=== PATIENT | male | born 1945 | race African-American/Black ===

== ENCOUNTER 2016-08-25 09:20 | Outpatient (CLI) | payer MEDICARE, OTHER | END 2016-08-25 09:21 | DX: I10 Essential (primary) hypertension (principal); Z12.5 Encounter for screening for malignant neoplasm of prostate; E78.5 Hyperlipidemia, unspecified | CPT/HCPCS: 36415; 80053; 80061; 84443; 85025; G0103 ==

== ENCOUNTER 2016-08-26 07:01 | Outpatient (CLI) | payer MEDICARE, OTHER | END 2016-08-26 07:02 | disposition home or self-care (01) | DX: M62.81 Muscle weakness (generalized) (principal); G81.11 Spastic hemiplegia affecting right dominant side ==

== ENCOUNTER 2016-08-30 11:13 | Outpatient (CLI) | payer MEDICARE, OTHER | END 2016-08-30 11:14 | disposition home or self-care (01) | DX: M62.81 Muscle weakness (generalized) (principal) ==

== ENCOUNTER 2016-09-08 07:34 | Outpatient (CLI) | payer MEDICARE, OTHER ==
[2016-09-08] MEDS ORDERED: GADOBUTROL 10 MMOL/10 ML VIAL IVP ONE (08:47)
--- NOTE | 2016-09-08 10:13 | MRI Report ---
EXAM: MRI BRAIN WITHOUT AND WITH CONTRAST EXAM DATE: 09/08/2016 09:05 AM. CLINICAL HISTORY: Right side weakness. COMPARISON: None. TECHNIQUE: Multiplanar, multisequence T1-weighted and fluid-sensitive MR sequences of the brain were performed. Sequences optimized for routine evaluation. Other: None. Without and with IV Contrast: 8 m L Gadavist. FINDINGS: Brain Volume: Mild age-related cerebral volume loss. Parenchyma/Dura: Multiple scattered nodular foci of diffusion abnormality in the region of the left f rontal lobe. The larger of these show restricted diffusion. The largest lesion in the left frontal lo be white matter is about 6 mm in diameter. Several additional foci of diffusion abnormality are small er. These findings are consistent with acute to subacute ischemic infarcts with accompanying T2 hyper intensity. No acute cerebral hemorrhage. Posterior left frontal lobe gyral and nodular peripheral enhancement. Enhancement is present in the r egions of diffusion abnormality. Subacute infarct of cortex creating enhancement is suspected. Enhanc ement from infection or tumor is less likely. Moderately prominent chronic-appearing nonenhancing cerebral white matter T2-hyperintense signal nayak ges, nonspecific, likely contributed to by aging and chronic small-vessel ischemic disease, though th e usual gamut of white matter conditions may be considered. Ventricles/Cisterns: No hydrocephalus. Sinuses: No acute sinus or mastoid disease. Bones: No focal pathologic-appearing marrow signal changes in the skull or clivus. Other: The major arterial skull base flow voids are present. Nonenhancing small ovoid focus of fluid signal at the most posterior aspect of the pituitary fossa. T his measures about 4 x 6 mm. IMPRESSION: 1. Multiple small scattered predominantly left MCA territory probably subacute ischemic infarcts. 2. No acute hemorrhage. 3. Mild atrophy and moderate white matter disease, white matter changes may be contributed to by agin g and chronic microangiopathy. 4. Posterior pituitary fossa circumscribed fluid signal focus, more likely cyst than tumor. Findings of infarct called by telephone to Doctor Flores at 9:50 AM 09/08/2016. [facility] Referring Provider Line: [phone] SITE ID: [id number]
--- NOTE | 2016-09-08 16:57 | Ultrasound Report ---
CAROTID DUPLEX: 09/08/2016 CLINICAL INDICATION: Left-sided infarcts. TECHNIQUE: Real-time sonographic vascular imaging was performed by the [employer] consultant through the carotid arteries utilizing both color-flow and Doppler spectral analysis. Multiple sales solutions representative static images were saved for review. Vessel PSV cm/sec 2D Plaque Estimate % ICA/CCA PSV EDV cm/sec % Stenosis RCCA Prox 76 -- RCCA Dist 106 26 RECA 83 -- RT BULB 101 -- 0.95 32 SHANTANU Prox 112 -- 1.06 40 SHANTANU Mid 99 -- 0.93 37 SHANTANU Dist 50 -- 0.47 20 RVA 79 RVA flow direction: Antegrade. Vessel PSV cm/sec 2D Plaque Estimate % ICA/CCA PSV EDV cm/sec % Stenosis LCCA Prox 93 -- LCCA Dist 81 19 LECA 76 -- LFT BULB 365 -- 4.5 115 LICA Prox 123 -- 1.52 34 LICA Mid 54 -- 0.67 24 LICA Dist 65 -- 0.80 24 LVA 49 LVA flow direction: Antegrade. Velocity criteria are extrapolated from diameter data as defined by the Society of Radiologists in Ultrasound Consensus Conference Radiology 2003; 229; 340-346. Degree of Stenosis % ICA PSV cm/sec Plaque Estimate % ICA/CCA RSV Ratio ICA EDV cm/sec Normal < 125 None < 2.0 < 40 <50 < 125 < 50 < 2.0 < 40 50-69 125 - 130 >/= 50 2.0 - 4.0 40 - 100 >/= 70 but less than near occlusion > 230 >/= 50 > 4.0 > 100 Near occlusion High, low, or undetectable Visible lumen Variable Variable Total occlusion Undetectable No detectable lumen Not applicable Not applicable FINDINGS: RIGHT: There is mild plaquing in the right carotid bifurcation, without evidence of a focal hemodynamically significant carotid stenosis. LEFT: There is a large amount of plaque in the left carotid bifurcation, extending into the proximal left internal carotid artery, producing greater than 70% luminal diameter narrowing in the bulb by velocity criteria. The vertebral arteries demonstrate antegrade flow bilaterally. IMPRESSION: HEMODYNAMICALLY SIGNIFICANT CAROTID STENOSIS IN THE LEFT BULB, EXTENDING INTO THE LEFT INTERNAL CAROTID ARTERY. CRITICAL RESULT: RESULTS CALLED TO DR. ANGELES, COVERING FOR СЕРГЕЙ CHEATHAM, ON 09/[address] [facility]
== END 2016-09-08 07:35 | disposition home or self-care (01) ==
LOC: DI 07:34
PROVIDERS: ATTEND Physician Assistant Medical
DX: I65.22 Occlusion and stenosis of left carotid artery (principal); G31.9 Degenerative disease of nervous system, unspecified; R90.82 White matter disease, unspecified; G93.9 Disorder of brain, unspecified
CPT/HCPCS: 70553; 93880; A9585

== ENCOUNTER 2016-11-06 17:46 | Emergency (ER) | payer MEDICARE, OTHER ==
--- NOTE | 2016-11-06 20:04 | ED Physician Documentation ---
PD HPI DYSPNEA - Stated complaint Stated Complaint: SOA - Chief complaint Chief Complaint: Resp - History obtained from History obtained from: Patient - History of Present Illness Timing - onset: Other (70-year-old gentleman, 3 weeks status post carotid endarterectomy with iatrogenic vocal cord paralysis. Ever since the surgery when he exercises he is short of breath. There is no shortness of breath at rest or chest pain, no pedal edema, cough, or leg pain. No history of heart or lung disease, no history of DVT or PE. He was seen in the office and reportedly a chest x-ray was done and normal, a d-dimer was high and sent here for CT angiography to rule out PE.) Review of Systems Constitutional: denies: Fever, Chills Ears: denies: Loss of hearing, Ear pain Nose: denies: Rhinorrhea / runny nose, Congestion Cardiac: denies: Chest pain / pressure, Palpitations, Pedal edema, Calf pain Respiratory: reports: Dyspnea. denies: Cough GI: denies: Abdominal Pain PD PAST MEDICAL HISTORY - Past Medical History Past Medical History: Yes Neuro: CVA - Past Surgical History Past Surgical History: Yes - Present Medications Home Medications: Ambulatory Orders Medication Instructions Recorded Confirmed Aspirin [Aspirin EC] 81 mg PO DAILY 11/06/16 11/06/16 Clopidogrel [Plavix] 75 mg PO DAILY 11/06/16 11/06/16 Enoxaparin [Lovenox] 80 mg SUBQ Q12H #10 syringe 11/06/16 Losartan [Cozaar] 25 mg PO DAILY 11/06/16 11/06/16 Metoprolol Tartrate 25 mg PO DAILY 11/06/16 11/06/16 - Allergies Allergies/Adverse Reactions: Allergies Allergy/AdvReac Type Severity Reaction Status Date / Time No Known Drug Allergies Allergy Verified 11/06/16 17:53 - Social History Does the pt smoke?: No Smoking Status: Never smoker Does the pt drink ETOH?: No Does the pt have substance abuse?: No PD ED PE NORMAL - Vitals Vital signs reviewed: Yes - General General: Alert and oriented X 3, No acute distress - HEENT HEENT: PERRL, EOMI - Neck Neck: Other (Healing left-sided carotid endarterectomy scar and he does have stridor with deep breathing which he says he has had ever since the surgery.) - Cardiac Cardiac: RRR, No murmur - Respiratory Respiratory: No respiratory distress, Clear bilaterally - Abdomen Abdomen: Non tender - Extremities Extremities: No edema, No calf tenderness / cord - Neuro Neuro: Alert and oriented X 3, Normal speech - Psych Psych: Normal mood, Normal affect Results - Vitals Vitals: Vital Signs - 24 hr 11/06/16 11/06/16 11/06/16 17:51 19:53 22:32 Temperature 36.7 C 36.6 C Heart Rate 56 L 91 89 Respiratory 18 18 16 Rate Blood Pressure 158/83 H 158/82 H 149/75 H O2 Saturation 97 96 98 Oxygen O2 Source Room air - EKG (time done) 1934 Rate: Rate (enter#) (90) Rhythm: NSR [place]: Normal Intervals: Normal RI QRS: Normal Ischemia: Normal ST segments Computer interpretation: Agree with computer - Labs Labs: Laboratory Tests 11/06/16 11/06/16 11/06/16 20:00 20:50 20:50 WBC 6.8 RBC 5.19 Hgb 13.9 L Hct 41.9 L MCV 80.8 MCH 26.9 L MCHC 33.3 RDW 14.6 Plt Count 215 MPV 7.3 L Neut # 3.3 Lymph # 2.8 Hendry # 0.5 Eos # 0.1 Baso # 0.0 Absolute Nucleated RBC 0.00 Nucleated RBCs 0.1 Sodium 140 Potassium 3.1 L Chloride 102 Carbon Dioxide 28 Anion Gap 10.0 BUN 25 H Creatinine 1.4 H Estimated GFR (MDRD) 61 L Glucose 107 H Calcium 9.4 Troponin I < 0.04 - Rads (name of study) CT PA Radiology: EMP read contemporaneously (Nondiagnostic due to bad contrast timing) PD MEDICAL DECISION MAKING - ED course ED course: 70-year-old gentleman presents with postoperative dyspnea and high d-dimer as done in the outpatient setting. CT pulmonary angiogram was unfortunately nondiagnostic due to poor contrast bolus timing. I had a discussion with the patient and his and recommended he stay in observation and need to be hydrated for repeat repeat CT pulmonary angiogram in the morning or VQ scan. He refused this, he wants to go see his ear nose and throat physician with whom he has a follow-up appointment tomorrow. Other options considered and posited to the patient were staying a few hours for IV hydration and repeat CT in a few hours, he declined this as well. He felt comfortable giving himself Lovenox so he will give himself Lovenox until he can return here on Monday to have a CT repeated. Departure - Departure Disposition: Home, Self Care Clinical Impression: Dyspnea Qualifiers: Dyspnea type: dyspnea on exertion Qualified Code(s): R06.09 - Other forms of dyspnea Condition: Good Record reviewed to determine appropriate education?: Yes Prescriptions: Enoxaparin [Lovenox] 80 mg SUBQ Q12H #10 syringe Comments: Give yourself the Lovenox shot twice a day including tomorrow morning until you have a negative CAT scan of your chest. Return as discussed on Monday for repeat CT of your chest. Drink plenty of fluids in the meantime. Return sooner if worse. Your blood pressure was elevated today on check into the emergency department. This does not mean that you have hypertension, it is a common phenomenon to come to the emergency department and have elevated blood pressure. I recommend that she see her primary care physician within the week to have it rechecked when you are feeling better. Discharge Date/Time: 11/06/16 23:11
[2016-11-06 20:57] LABS: BASOPHILS % (AUTO) 0.5 %; EOSINOPHILS # (AUTO) 0.1 10^3/uL (0.0-0.7); EOSINOPHILS % (AUTO) 1.5 %; HCT - HEMATOCRIT 41.9 % (42.0-52.0); HGB - HEMOGLOBIN 13.9 g/dL (14.0-18.0); LYMPHOCYTES # (AUTO) 2.8 10^3/uL (1.5-3.5); LYMPHOCYTES % (AUTO) 41.7 %; MEAN CORPUSCULAR HEMOGLOBIN 26.9 pg (27.0-31.0); MEAN CORPUSCULAR HGB CONC 33.3 g/dL (32.0-36.0); MEAN CORPUSCULAR VOLUME 80.8 fL (80.0-94.0); MEAN PLATELET VOLUME 7.3 fL (7.4-11.4); MONOCYTES # (AUTO) 0.5 10^3/uL (0.0-1.0); MONOCYTES % (AUTO) 7.6 %; NEUTROPHILS # (AUTO) 3.3 10^3/uL (1.5-6.6); NEUTROPHILS % (AUTO) 48.7 %; NUCLEATED RED BLOOD CELLS AUTO 0.1 /100WBC; RED BLOOD COUNT 5.19 10^6/uL (4.70-6.10); RED CELL DISTRIBUTION WIDTH 14.6 % (12.0-15.0); UNCORRECTED WHITE BLOOD COUNT 6.8 x10^3/uL; WHITE BLOOD COUNT 6.8 x10^3/uL (4.8-10.8)
[2016-11-06 21:10] LABS: CALCIUM 9.4 mg/dL (8.5-10.3); CREATININE 1.4 mg/dL (0.6-1.2); POTASSIUM 3.1 mmol/L (3.5-5.0)
[2016-11-06] MEDS ORDERED: POTASSIUM BICARB 25 MEQ TABLET PO STA (21:19)
[2016-11-06] MEDS ORDERED: SODIUM CHLORIDE 0.9% 1,000 ML IV ONE (21:19)
[2016-11-06] MEDS ORDERED: IOPAMIDOL-300 100 ML VIAL IVP ONE (21:28)
[2016-11-06] MEDS ORDERED: POTASSIUM BICARB 25 MEQ TABLET PO ONE (21:38)
[2016-11-06 22:32] VITALS: BP 149/75
--- NOTE | 2016-11-06 22:36 | CT Preliminary Report ---
Exam: CT Chest Angio (PE) IMPRESSION: 1. Nondiagnostic study for pulmonary emboli. 2. No thoracic aortic aneurysm or dissection. Coronary artery disease. 3. No acute pulmonary process. [facility] SITE ID: [id number]
--- NOTE | 2016-11-06 22:46 | CT Report ---
EXAM: CT ANGIOGRAM CHEST EXAM DATE: 11/06/2016 09:31 PM. CLINICAL HISTORY: Dyspnea, high dimer. COMPARISON: 11/03/2016. TECHNIQUE: Routine helical imaging was performed through the chest in the pulmonary arterial phase. I V Contrast: Amt/type. Reconstructions: Coronal 3-D MIP reconstructions.Sagittal and coronal. In accordance with CT protocol optimization, one or more of the following dose reduction techniques w ere utilized for this exam: automated exposure control, adjustment of mA and/or KV based on patient s ize, or use of iterative reconstructive technique. FINDINGS: Pulmonary Arteries: Diagnostic quality: Nondiagnostic opacification through the segmental arteries. Insufficient contrast opacification of the pulmonary arteries for evaluating emboli. Study is essentially a thoracic aorti c study. RV/LV is within normal limits. There is no interventricular septal bowing. There is no reflux of cont rast material in the IVC. Lungs/Pleura: No consolidation, nodules, or edema. No effusions or pneumothorax. Mild right lower lob e atelectasis. Mediastinum: Normal. No cardiac enlargement or adenopathy. Atheromatous plaques are present in the le ft anterior descending coronary artery. Incidental small hiatal hernia noted. Thoracic Aorta: Atheromatous plaques are noted without evidence of a thoracic aortic dissection or an eurysm. Upper Abdomen: Unremarkable. Other: Right thyroid lobe is atrophic or absent. Normal left thyroid gland. No thyroid nodule or mass . Subcutaneous soft tissues of the chest and abdomen are normal. No supraclavicular or axillary adeno stefanie. Elevated right hemidiaphragm is noted. IMPRESSION: 1. Nondiagnostic study for pulmonary emboli. 2. No thoracic aortic aneurysm or dissection. Coronary artery disease. 3. No acute pulmonary process. [facility] Referring Provider Line: [phone] SITE ID: [id number]
[2016-11-06] MEDS ORDERED: ENOXAPARIN 80 MG/0.8 ML SYRINGE SUBQ STA (22:55)
[2016-11-06] MEDS ORDERED: ENOXAPARIN 80 MG/0.8 ML SYRINGE SUBQ ONE (22:59)
== END 2016-11-06 23:11 | disposition home or self-care (01) ==
LOC: ED 17:46
DX: R06.09 Other forms of dyspnea (principal); Z98.890 Other specified postprocedural states; R03.0 Elevated blood-pressure reading, without diagnosis of hypertension; Z79.02 Long term (current) use of antithrombotics/antiplatelets; Z79.82 Long term (current) use of aspirin
CPT/HCPCS: 36415; 71275; 80048; 84484; 85025; 93005; 96372; 99284; A9270; J1650; Q9967

== ENCOUNTER 2016-11-08 07:55 | Emergency (ER) | payer MEDICARE, OTHER ==
[2016-11-08] MEDS ORDERED: ALBUTEROL NEB 2.5 MG/3 ML INH STA (08:17)
--- NOTE | 2016-11-08 08:26 | ED Physician Documentation ---
History of Present Illness - Stated complaint Stated Complaint: SOA/FU - Chief complaint Chief Complaint: General - Additonal information Additional information: hx from pt 70 male s/p endarterectomy at [facility] per pt there was a complication causing vocal cord paralysis and swelling - he was started on plavix and decadron after dc he was SOA worse with exertion no CP so went to PMD and had a eg CXR and + d dimer so sent to ED for CTPA CTPA non diagnostic 2/2 bolus timing so pt dced on lovenox in addition to plavix and advised to return to ED today for a repeat CTPA when it would be safe to give contrast again pt returns as advised his sx are not better and no worse - he returns because he was told to still SOA as before no fever or cough no bloody black stool or other excessive bleeding while on plavix and lovenox also saw ENT yesterday and had another scope there Review of Systems Constitutional: denies: Fever, Chills Cardiac: denies: Chest pain / pressure Respiratory: reports: Dyspnea GI: denies: Abdominal Pain Musculoskeletal: denies: Extremity pain, Extremity swelling Endocrine: reports: Easy bruising / bleeding Immunocompromised: denies: Immunocompromised PD PAST MEDICAL HISTORY - Past Medical History Neuro: CVA - Past Surgical History Past Surgical History: Yes - Present Medications Home Medications: Ambulatory Orders Medication Instructions Recorded Confirmed Aspirin [Aspirin EC] 81 mg PO DAILY 11/06/16 11/08/16 Clopidogrel [Plavix] 75 mg PO DAILY 11/06/16 11/08/16 Enoxaparin [Lovenox] 80 mg SUBQ Q12H #10 syringe 11/06/16 11/08/16 Losartan [Cozaar] 25 mg PO DAILY 11/06/16 11/08/16 Metoprolol Tartrate 25 mg PO DAILY 11/06/16 11/08/16 Albuterol Sulfate [Proair Hfa 2 puffs INH Q4H PRN #1 inhaler 11/08/16 Inhaler] Dexamethasone [Decadron] 2 mg PO BIDWM #14 tablet 11/08/16 - Allergies Allergies/Adverse Reactions: Allergies Allergy/AdvReac Type Severity Reaction Status Date / Time No Known Drug Allergies Allergy Verified 11/06/16 17:53 - Social History Does the pt smoke?: No Smoking Status: Never smoker Does the pt drink ETOH?: No Does the pt have substance abuse?: No PD ED PE NORMAL - Vitals Vital signs reviewed: Yes - Neck Neck: Other (left ant neck incision healing well, no edema, no pain with tracheal manipulation) - Cardiac Cardiac: RRR - Respiratory Respiratory: Other (lauren wheezing) - Derm Derm: Normal color - Extremities Extremities: No deformity, No edema, No calf tenderness / cord - Neuro Neuro: Alert and oriented X 3 Results - Vitals Vitals: Vital Signs - 24 hr 11/08/16 11/08/16 11/08/16 08:01 08:40 13:20 Temperature 36.0 C L Heart Rate 92 96 84 Respiratory 16 16 16 Rate Blood Pressure 153/81 H 158/86 H O2 Saturation 98 99 Oxygen O2 Source Room air - Labs Labs: Laboratory Tests 11/08/16 11/08/16 08:20 08:20 Creatinine 1.4 H Estimated GFR (MDRD) 61 L Troponin I < 0.04 - Rads (name of study) CTPA Radiology: See rad report (again non diagnostic for PE, per verbal with [facility] there is no apparent infarct, no RV strain, no pulm artery distension) CT neck with Radiology: See rad report (R submucosal hyperdense mass 26 X 20 X 15 mm could be a hemtoma (diff intubation approx 3 weeks ago on lovenox and plavix) vs tumor (not seen during fiberoptic intubation late September so less likely), mild airway narrowing, surgical clips, 6 mm cystic focus with punctate calcification L palatine fossa may be a submucosal cyst, no enhancement to suggest abscess, absent R thyroid lobe) lauren LE dopplers Radiology: See rad report (no DVTS) PD MEDICAL DECISION MAKING - ED course ED course: CTA again non diagnostic I called and spoke to [facility] - there is at least no secondary suggestion of PE - no infarct no RV strain no PA dilatation etc rad rec VQ but would need to order isotope so got lauren LE and they are neg pt has a very good reason to be SOA with wheezing and airway swelling do not feel sx are due to PE and think pt should stop his lovenox (urvashi as may have a pharyngeal hematoma) regarding abn ST neck CT with possible tumor vs hematoma - I called and spoke to ENT at [facility] several times and they just saw the pt yesterday and did a scope and also on yani Dr Hernandez reviewed the CT images which were pushed to [facility] for review - ENT does not feel the findings today are sig diff than prior - rec if pt sx are not worsening he does not need transfer - rec stop lovenox in case this is a hematoma, inc (or restart as it turns out pt just finished) the decadron, will trial MDI and pt will need to see PMD or ENT for recheck this week and of course return to the ER sooner if worse in any way Departure - Departure Disposition: Home, Self Care Clinical Impression: Laryngeal edema Condition: Good Follow-Up: Marycruz Macias PA-C [Primary Care Provider] - Prescriptions: Dexamethasone [Decadron] 2 mg PO BIDWM #14 tablet Albuterol Sulfate [Proair Hfa Inhaler] 2 puffs INH Q4H PRN #1 inhaler PRN Reason: Shortness Of Air/Wheezing Comments: The CT still did not get a perfect picture of the blood vessels in your lungs but using the information form your CT and ultrasound combined I do not think you have a blood clot in your lung. You can stop the lovenox Please continue your plavix. The shortness of breath is likely due the focal swelling on the right side of your larynx which you have been seeing ENT about The ENT doctor reviewed your CT and the swelling does not seem worse and he recommends that if your symptoms are not worsening, you may go home and continue /restart the decadron (a steroid to decreased swelling) I also prescribed an inhaler which you can use every 4 hours as needed. Please follow up with either your PMD or the ENT group in [place] for a recheck this week. Return to the ER right away if you start to become worse Also please get your blood pressure rechecked - it was high today
[2016-11-08] MEDS ORDERED: ALBUTEROL NEB 2.5 MG/3 ML INH ONE (08:31)
[2016-11-08 08:40] LABS: CREATININE 1.4 mg/dL (0.6-1.2)
[2016-11-08] MEDS ORDERED: IOPAMIDOL-300 100 ML VIAL IVP ONE (10:37)
--- NOTE | 2016-11-08 10:40 | CT Preliminary Report ---
Exam: CT Chest Angio (PE) IMPRESSION: 1. Nondiagnostic for evaluation of pulmonary emboli. Primary enhancement phase is aortic. Given that this is the second attempted, but nondiagnostic, pulmonary artery CT angiogram, further evaluation by nuclear medicine ventilation/perfusion scintigraphy could be considered. 2. Right lower lobe atelectasis is slightly improved. 3. Stable bilateral adrenal gland prominence. [facility] SITE ID: [id number]
--- NOTE | 2016-11-08 10:43 | CT Report ---
EXAM: CT ANGIOGRAM CHEST EXAM DATE: 11/08/2016 10:05 AM. CLINICAL HISTORY: Post op soa, CTPA 11/06 non diagnostic 2/2 bolus ti. COMPARISON: Chest CT angiogram 11/06/2016. TECHNIQUE: Routine helical imaging was performed through the chest in the pulmonary arterial phase. I V Contrast: 100 cc [id number]. Reconstructions: Coronal 3-D MIP reconstructions.Sagittal and coronal. In accordance with CT protocol optimization, one or more of the following dose reduction techniques w ere utilized for this exam: automated exposure control, adjustment of mA and/or KV based on patient s ize, or use of iterative reconstructive technique. FINDINGS: Pulmonary Arteries: Diagnostic quality: Inadequate through the segmental arteries. Substantial opacification of the pulmo nary arteries is not achieved. No gross emboli demonstrated but this is nondiagnostic for pulmonary e mbolus evaluation. Dense contrast seen within the left upper extremity vessels, refluxing into the le ft internal jugular and also SVC. There is also substantial enhancement of the left aspect of the hea rt and the aorta and arch and mesenteric arteries. RV/LV is within normal limits. There is no interventricular septal bowing. There is no reflux of cont rast material in the IVC. Lungs/Pleura: Bandlike right lower lobe atelectasis is slightly improved. Lungs otherwise are clear. No pleural effusion. No pneumothorax. Mediastinum: Normal heart size. No pericardial effusion. No mediastinal, hilar or axillary lymphadeno stefanie. Coronary artery calcification demonstrated. Thoracic Aorta: Mild atherosclerotic plaque. No dissection or aneurysm. Upper Abdomen: Adrenal gland enlargement, left greater than right, without change. Other: None. IMPRESSION: 1. Nondiagnostic for evaluation of pulmonary emboli. Primary enhancement phase is aortic. Given that this is the second attempted, but nondiagnostic, pulmonary artery CT angiogram, further evaluation by nuclear medicine ventilation/perfusion scintigraphy could be considered. 2. Right lower lobe atelectasis is slightly improved. 3. Stable bilateral adrenal gland prominence. [facility] Referring Provider Line: [phone] SITE ID: [id number]
--- NOTE | 2016-11-08 11:01 | CT Preliminary Report ---
Exam: CT Neck Soft Tissue W/ IMPRESSION: 1. Circumscribed right-sided transglottic submucosal hyperdense mass. This measures 26 x 20 x 15 mm. This could represent hematoma versus submucosal tumor. Adjacent effacement of the laryngeal ventricle is seen with mild airway narrowing. 2. Surgical clips from left carotid endarterectomy. 3. 6 mm submucosal cystic focus with punctate calcification in the left palatine fossa. This may repr esent submucosal cyst. No significant enhancement is seen to suggest small palatine fossa abscess. 4. 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 Critical result: Findings are discussed with the referring physician, Dr. Keyanna Smith, on 7 at 1052 hrs. [facility] SITE ID: [id number]
--- NOTE | 2016-11-08 11:17 | CT Report ---
EXAM: CT SOFT TISSUE NECK, WITH CONTRAST. EXAM DATE: 11/08/2016 10:20 AM. HISTORY: Status post left endarterectomy, approximately 10/11/2016. Patient has been on blood thinner s for approximately one week. Wheezing and stridor. COMPARISONS: None. TECHNIQUE: Routine soft tissue neck CT protocol. IV contrast: 100 cc Isovue-[id number]. Reconstructions: Cor onal and sagittal. In accordance with CT protocol optimization, one or more of the following dose reduction techniques w ere utilized for this exam: automated exposure control, adjustment of mA and/or KV based on patient s ize, or use of iterative reconstructive technique. FINDINGS: Visualized intracranial contents: Unremarkable. Orbits: Symmetric and unremarkable. Note is made of right lens removal. Sinuses and skull base: Visualized paranasal sinuses and mastoid air cells are clear. The skull base is intact. Pharynx: Mild soft tissue fullness is seen in the posterior nasopharynx consistent with lymphoid tiss ue in the adenoids. 6 mm cystic focus with punctate calcification is seen in the left palatine fossa. No significant enhancement is seen. Otherwise pharyngeal mucosa is unremarkable. The upper temporal fossa, parapharyngeal spaces, and retropharyngeal space are unremarkable. The base of the tongue is s ymmetric and unremarkable. The airway is patent. Mild metallic density is seen partially obscuring the oral cavity. The visualized floor of the mouth is unremarkable. Larynx: Circumscribed hyperdense submucosal mass is seen in the right aspect of the larynx. This is t ransglottic measuring 26 x 20 x 15 mm. This extends from the infraglottic larynx, through the true vo yani cord level, laryngeal ventricle, and false vocal cord level into the supraglottic region inferior to the vallecula. Associated diffuse effacement of the laryngeal ventricle is seen with mild right t o left displacement and convexity at the level of the vocal cords. Associated airway narrowing is see n. Parotid and submandibular glands: Symmetric and unremarkable. Lymph nodes and soft tissues: No abnormal cervical lymphadenopathy is seen. Mild fascial plane edema is seen about the left carotid bifurcation and carotid sheath from recent endarterectomy surgery. Vasculature: Surgical clips are seen about the left carotid bifurcation. Great vessels in the neck ap pear patent. 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 The left lobe and is thmus are unremarkable. Lung apices: Clear. Bones: No lytic or blastic bony lesions are seen. Mild cervical spondylosis is seen. C4-C5: Right-sided degenerative facet change with minimal spondylolisthesis. C5-C6: Degenerative disk and uncovertebral change. Mild foraminal stenosis. C6-C7: Mild left-sided degenerative facet change. Other: None IMPRESSION: 1. Circumscribed right-sided transglottic submucosal hyperdense mass. This measures 26 x 20 x 15 mm. This could represent hematoma versus submucosal tumor. Adjacent effacement of the laryngeal ventricle is seen with mild airway narrowing. 2. Surgical clips from left carotid endarterectomy. 3. 6 mm submucosal cystic focus with punctate calcification in the left palatine fossa. This may repr esent submucosal cyst. No significant enhancement is seen to suggest small palatine fossa abscess. 4. 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 Critical result: Findings are discussed with the referring physician, Dr. Keyanna Smith, on 7 at 1052 hrs. [facility] Referring Provider Line: [phone] SITE ID: [id number]
[2016-11-08] MEDS ORDERED: DEXAMETHASONE 10 MG/ML VIAL PO STA (15:50)
[2016-11-08] MEDS ORDERED: CHERRY SYRUP 10 ML UDC PO ONE (15:58)
[2016-11-08] MEDS ORDERED: DEXAMETHASONE 10 MG/ML VIAL ONE (15:58)
[2016-11-08 16:23] VITALS: BP 150/96
--- NOTE | 2016-11-09 09:19 | Ultrasound Report ---
BILATERAL LOWER EXTREMITY VENOUS ULTRASOUND: 11/08/2016 CLINICAL HISTORY: The patient is postop and has a positive D-dimer with two nondiagnostic pulmonary artery CTAs. TECHNIQUE: Bilateral lower extremity venous ultrasound was done utilizing a [employer] color Doppler sc anning system with high-frequency transducers. FINDINGS: Bilateral lower extremity deep veins show no evidence of thrombus. This includes the comm on femoral veins, superficial femoral veins, profunda femoral veins, popliteal veins, and calf veins. Each of these structures shows normal compressibility and phasic color flow. IMPRESSION: NEGATIVE BILATERAL LOWER EXTREMITY VENOUS ULTRASOUND. JOB #: [id number] EXT JOB #:[id number]
== END 2016-11-08 16:36 | disposition home or self-care (01) ==
LOC: ED 07:55
DX: J38.4 Edema of larynx (principal); Z86.73 Personal history of transient ischemic attack (TIA), and cerebral infarction without residual deficits; Z79.82 Long term (current) use of aspirin
CPT/HCPCS: 36415; 70491; 71275; 82565; 84484; 93970; 94640; 99283; 99284; A9270; J7613; Q9967

== ENCOUNTER 2017-05-04 08:00 | Outpatient (CLI) | payer MEDICARE, OTHER ==
[2017-05-04 13:29] LABS: ALBUMIN 4.4 g/dL (3.2-5.5); ALBUMIN/GLOBULIN RATIO 1.3 (1.0-2.2); ALKALINE PHOSPHATASE 52 IU/L (42-121); ALT ALANINE AMINOTRANSFERASE 33 IU/L (10-60); AST ASPARTATE AMINOTRANSFERASE 23 IU/L (10-42); BILIRUBIN,TOTAL 0.5 mg/dL (0.2-1.0); BUN - BLOOD UREA NITROGEN 24 mg/dL (6-20); CALCIUM 9.2 mg/dL (8.5-10.3); CARBON DIOXIDE - CO2 29 mmol/L (21-32); CHLORIDE 103 mmol/L (101-111); CHOL/HDL RATIO 2.6 (<5.0); CHOLESTEROL 123 mg/dL; CREATININE 1.3 mg/dL (0.6-1.2); GFR - MDRD 66 (>89); GLUCOSE 104 mg/dL (70-100); HDL CHOLESTEROL 47 mg/dL; LDL CHOLESTEROL,CALCULATED 63 mg/dL; LDL/HDL RATIO 1.3 (<3.6); SODIUM 136 mmol/L (135-145); TOTAL PROTEIN 7.8 g/dL (6.7-8.2); VLDL CHOLESTEROL 13 mg/dL
== END 2017-05-04 08:01 ==
LOC: LAB.WCP 08:00
PROVIDERS: ATTEND Physician Assistant Medical
DX: E78.5 Hyperlipidemia, unspecified (principal)
CPT/HCPCS: 36415; 80053; 80061

== ENCOUNTER 2017-10-13 07:18 | Outpatient (CLI) | payer MEDICARE, OTHER ==
[2017-10-13 12:55] LABS: BASOPHILS % (AUTO) 0.7 %; EOSINOPHILS # (AUTO) 0.2 10^3/uL (0.0-0.7); EOSINOPHILS % (AUTO) 4.2 %; HGB - HEMOGLOBIN 14.7 g/dL (14.0-18.0); LYMPHOCYTES % (AUTO) 42.3 %; MEAN CORPUSCULAR HEMOGLOBIN 27.1 pg (27.0-31.0); MEAN CORPUSCULAR HGB CONC 32.8 g/dL (32.0-36.0); MEAN CORPUSCULAR VOLUME 82.5 fL (80.0-94.0); MEAN PLATELET VOLUME 8.6 fL (7.4-11.4); MONOCYTES # (AUTO) 0.4 10^3/uL (0.0-1.0); MONOCYTES % (AUTO) 8.4 %; NEUTROPHILS # (AUTO) 2.1 10^3/uL (1.5-6.6); NEUTROPHILS % (AUTO) 44.4 %; PLT - PLATELET COUNT 175 10^3/uL (130-450); RED BLOOD COUNT 5.44 10^6/uL (4.70-6.10); WHITE BLOOD COUNT 4.7 x10^3/uL (4.8-10.8)
[2017-10-13 13:45] LABS: ALBUMIN/GLOBULIN RATIO 1.1 (1.0-2.2); ALKALINE PHOSPHATASE 39 IU/L (42-121); ALT ALANINE AMINOTRANSFERASE 39 IU/L (10-60); AST ASPARTATE AMINOTRANSFERASE 27 IU/L (10-42); BILIRUBIN,TOTAL 0.6 mg/dL (0.2-1.0); BUN - BLOOD UREA NITROGEN 22 mg/dL (6-20); CALCIUM 9.1 mg/dL (8.5-10.3); CARBON DIOXIDE - CO2 26 mmol/L (21-32); CHLORIDE 101 mmol/L (101-111); CHOL/HDL RATIO 2.9 (<5.0); CHOLESTEROL 112 mg/dL; CREATININE 1.5 mg/dL (0.6-1.2); GFR - MDRD 56 (>89); GLUCOSE 100 mg/dL (70-100); HDL CHOLESTEROL 38 mg/dL; LDL CHOLESTEROL,CALCULATED 55 mg/dL; LDL/HDL RATIO 1.4 (<3.6); SODIUM 135 mmol/L (135-145); TOTAL PROTEIN 7.6 g/dL (6.7-8.2); VLDL CHOLESTEROL 19 mg/dL
[2017-10-14 12:36] LABS: HEPATITIS C ANTIBODY NON-REACTIVE (NON-REACTIVE)
== END 2017-10-13 07:19 | disposition home or self-care (01) ==
LOC: LAB.WCP 07:18
PROVIDERS: ATTEND Physician Assistant Medical
DX: E78.5 Hyperlipidemia, unspecified (principal); I10 Essential (primary) hypertension; Z11.59 Encounter for screening for other viral diseases
CPT/HCPCS: 36415; 80053; 80061; 83721; 85025; 86803

== ENCOUNTER 2018-10-30 08:00 | Outpatient (CLI) | payer MEDICARE, OTHER ==
[2018-10-30 12:18] LABS: BASOPHILS % (AUTO) 0.4 %; EOSINOPHILS # (AUTO) 0.1 10^3/uL (0.0-0.7); EOSINOPHILS % (AUTO) 1.6 %; HGB - HEMOGLOBIN 14.9 g/dL (14.0-18.0); LYMPHOCYTES # (AUTO) 2.8 10^3/uL (1.5-3.5); LYMPHOCYTES % (AUTO) 50.3 %; MEAN CORPUSCULAR HGB CONC 32.5 g/dL (32.0-36.0); MEAN CORPUSCULAR VOLUME 83.1 fL (80.0-94.0); MEAN PLATELET VOLUME 10.2 fL (7.4-11.4); MONOCYTES # (AUTO) 0.4 10^3/uL (0.0-1.0); MONOCYTES % (AUTO) 7.7 %; NEUTROPHILS # (AUTO) 2.2 10^3/uL (1.5-6.6); NEUTROPHILS % (AUTO) 39.6 %; PLT - PLATELET COUNT 190 10^3/uL (130-450); RED BLOOD COUNT 5.51 10^6/uL (4.70-6.10); RED CELL DISTRIBUTION WIDTH 14.4 % (12.0-15.0); WHITE BLOOD COUNT 5.6 x10^3/uL (4.8-10.8)
[2018-10-30 13:05] LABS: ALBUMIN/GLOBULIN RATIO 1.2 (1.0-2.2); ALKALINE PHOSPHATASE 43 IU/L (42-121); ALT ALANINE AMINOTRANSFERASE 33 IU/L (10-60); AST ASPARTATE AMINOTRANSFERASE 23 IU/L (10-42); BILIRUBIN,TOTAL 0.5 mg/dL (0.2-1.0); BUN - BLOOD UREA NITROGEN 22 mg/dL (6-20); CALCIUM 9.2 mg/dL (8.5-10.3); CARBON DIOXIDE - CO2 23 mmol/L (21-32); CHLORIDE 107 mmol/L (101-111); CHOL/HDL RATIO 3.1 (<5.0); CHOLESTEROL 115 mg/dL; CREATININE 1.4 mg/dL (0.6-1.2); GFR - MDRD 61 (>89); GLUCOSE 107 mg/dL (70-100); HDL CHOLESTEROL 37 mg/dL; LDL CHOLESTEROL,CALCULATED 62 mg/dL; LDL/HDL RATIO 1.7 (<3.6); SODIUM 138 mmol/L (135-145); TOTAL PROTEIN 7.3 g/dL (6.7-8.2); VLDL CHOLESTEROL 16 mg/dL
== END 2018-10-30 23:59 | disposition home or self-care (01) ==
LOC: LAB.WCP 08:00
PROVIDERS: ATTEND Physician Assistant Medical
DX: I10 Essential (primary) hypertension (principal); E78.5 Hyperlipidemia, unspecified
CPT/HCPCS: 36415; 80053; 80061; 83721; 85025

== ENCOUNTER 2019-06-18 08:00 | Outpatient (CLI) | payer MEDICARE, OTHER ==
[2019-06-18 12:41] LABS: CALCIUM 9.4 mg/dL (8.5-10.3); CREATININE 1.5 mg/dL (0.6-1.2)
== END 2019-06-18 23:59 | disposition home or self-care (01) ==
LOC: LAB.WCP 08:00
PROVIDERS: ATTEND Physician Assistant Medical
DX: I10 Essential (primary) hypertension (principal)
CPT/HCPCS: 36415; 80048

== ENCOUNTER 2020-02-12 08:17 | Outpatient (CLI) | payer MEDICARE, OTHER ==
[2020-02-12 12:04] LABS: CALCIUM 9.5 mg/dL (8.5-10.3); CREATININE 1.1 mg/dL (0.6-1.2)
== END 2020-02-12 23:59 | disposition home or self-care (01) ==
LOC: LAB.WCP 08:17
PROVIDERS: ATTEND Physician Assistant Medical
DX: N18.9 Chronic kidney disease, unspecified (principal)
CPT/HCPCS: 36415; 80048

== ENCOUNTER 2021-06-11 09:18 | Outpatient (CLI) | payer MEDICARE, OTHER ==
[2021-06-11 13:29] LABS: ALBUMIN 4.6 g/dL (3.2-5.5); ALBUMIN/GLOBULIN RATIO 1.2 (1.0-2.2); ALKALINE PHOSPHATASE 80 IU/L (42-121); ALT ALANINE AMINOTRANSFERASE 41 IU/L (10-60); AST ASPARTATE AMINOTRANSFERASE 32 IU/L (10-42); BUN - BLOOD UREA NITROGEN 17 mg/dL (6-20); CALCIUM 9.2 mg/dL (8.5-10.3); CARBON DIOXIDE - CO2 29 mmol/L (21-32); CHLORIDE 99 mmol/L (101-111); CHOL/HDL RATIO 2.9 (<5.0); CHOLESTEROL 149 mg/dL; CREATININE 1.5 mg/dL (0.6-1.2); GFR - MDRD 55 (>89); GLUCOSE 118 mg/dL (70-100); HDL CHOLESTEROL 52 mg/dL; LDL CHOLESTEROL,CALCULATED 84 mg/dL; LDL/HDL RATIO 1.6 (<3.6); POTASSIUM 4.3 mmol/L (3.5-5.0); SODIUM 135 mmol/L (135-145); TOTAL PROTEIN 8.3 g/dL (6.7-8.2); TRIGLYCERIDES 66 mg/dL; VLDL CHOLESTEROL 13 mg/dL
== END 2021-06-11 09:19 | disposition home or self-care (01) ==
LOC: LAB.N 09:18
PROVIDERS: ATTEND Physician Assistant Medical
DX: E78.5 Hyperlipidemia, unspecified (principal)
CPT/HCPCS: 36415; 80053; 80061; 83721

== ENCOUNTER 2021-12-23 10:31 | Outpatient (CLI) | payer MEDICARE, OTHER ==
--- NOTE | 2021-12-23 16:28 | Ultrasound Report ---
PROCEDURE: Carotid Doppler Complete INDICATIONS: Carotid artery stenosis status post left carotid endarterectomy. TECHNIQUE: Color and pulse Doppler interrogation was performed of both carotid systems, with image documentation and velocity measurements. COMPARISON: 09/08/2016. FINDINGS: Right side: Brachial blood pressure: 147/89 mm Hg. Common carotid artery peak systolic velocity: 88 cm/sec. Internal carotid artery peak systolic velocity: 95 cm/sec. Internal carotid artery end diastolic velocity: 35 cm/sec. External carotid artery peak systolic velocity: 89 cm/sec. ICA/CCA peak systolic ratio: 1.07 . Yee scale imaging description: No narrowing identified. Percent internal carotid artery stenosis: No appreciable narrowing. . Vertebral artery: Flow direction is antegrade. Left side: Brachial blood pressure: 150/80 mm Hg. Common carotid artery peak systolic velocity: 58 cm/sec. Internal carotid artery peak systolic velocity: 89 cm/sec. Internal carotid artery end diastolic velocity: 28 cm/sec (previously 115 cm/s). External carotid artery peak systolic velocity: 82 cm/sec. ICA/CCA peak systolic ratio: 1.4 (previously 4.5). Yee scale imaging description: Mild intimal hyperplasia in the left carotid bifurcation. Percent internal carotid artery stenosis: Less than 20-30%. Vertebral artery: Flow direction is antegrade. IMPRESSION: Mild intimal hyperplasia in the left carotid bifurcation and distal common carotid artery producing n o greater than 20-30% stenosis. No carotid stenosis otherwise. Estimated of stenosis included in the report of the imaging study was calculated using the NASCET met hod. Reviewed by: Luis Antonio Chacon MD on 12/23/2021 4:27 PM PDT Approved by: Luis Antonio Chacon MD on 12/23/2021 4:27 PM PDT Station ID: [id number]
== END 2021-12-23 10:32 | disposition home or self-care (01) ==
LOC: DI 10:31
PROVIDERS: ATTEND Physician Assistant Medical
DX: I65.22 Occlusion and stenosis of left carotid artery (principal)
CPT/HCPCS: 93880

== ENCOUNTER 2024-01-02 10:48 | Outpatient (CLI) | payer MEDICARE, OTHER ==
[2024-01-02 18:19] LABS: ALBUMIN 4.3 g/dL (3.2-5.5); ALBUMIN/GLOBULIN RATIO 1.6 (1.0-2.2); ALKALINE PHOSPHATASE 67 IU/L (42-121); ALT ALANINE AMINOTRANSFERASE 19 IU/L (10-60); AST ASPARTATE AMINOTRANSFERASE 12 IU/L (10-42); BILIRUBIN,TOTAL 0.5 mg/dL (0.2-1.0); BUN - BLOOD UREA NITROGEN 18 mg/dL (6-20); CARBON DIOXIDE - CO2 23 mmol/L (21-32); CHLORIDE 106 mmol/L (101-111); CHOL/HDL RATIO 2.9 (<5.0); CHOLESTEROL 131 mg/dL; CREATININE 1.1 mg/dL (0.6-1.3); GFR - MDRD 79 (>89); GLUCOSE 99 mg/dL (74-104); HDL CHOLESTEROL 45 mg/dL; LDL CHOLESTEROL,CALCULATED 72 mg/dL; LDL/HDL RATIO 1.6 (<3.6); SODIUM 135 mmol/L (135-145); TRIGLYCERIDES 70 mg/dL; VLDL CHOLESTEROL 14 mg/dL
[2024-01-02 21:58] LABS: ESTIMATED AVERAGE GLUCOSE 131 mg/dL (70-100); HEMOGLOBIN A1c% 6.2 % (4.27-6.07)
== END 2024-01-02 10:49 | disposition home or self-care (01) ==
LOC: LAB.N 10:48
PROVIDERS: ATTEND Physician Assistant Medical
DX: E11.9 Type 2 diabetes mellitus without complications (principal); Z12.5 Encounter for screening for malignant neoplasm of prostate
CPT/HCPCS: 36415; 80053; 80061; 83036; G0103; 83721; 84153